=== PATIENT | female | born 1940 | race Caucasian/White ===

== ENCOUNTER 2025-07-17 09:16 | Emergency (ER) | payer BC, SELFPAY ==
[2025-07-17 09:18] VITALS: BP 156/82
--- NOTE | 2025-07-17 11:36 | ED.GENMED ---
History of Present Illness
General
Chief Complaint: Musculo-Skeletal Complaint
Time Seen by Provider: 07/17/25 10:50
History of Present Illness
History of Present Illness:
Patient is an 84-year-old female with past medical history of GERD, hyperlipidemia, hypertension who presents with days of worsening low back pain. She is unsure exactly when this started but has worsened since last to the exam table.
Denies any heavy lifting or falls recently. This is a 40 close days ago and prescribed tizanidine. She has been taking this without any improvement in her pain. Since this pain began she is been having trouble moving her bowels and started taking
MiraLAX and senna. No bowel movements in 3 days. Denies any urinary symptoms, fevers, chills, nausea, vomiting, abdominal pain.
Phy Exam
General Physical Exam
General Presentation: well appearing and no apparent distress
General Skin: warm and dry
General Habitus: normal
General Mental: alert
General Hydration: appears well hydrated
ENT Exam
ENT Exam: EOMI, pharynx normal, neck supple and normocephalic
Eye Exam
Eye Exam: PERRL, cornea clear and conjunctiva normal
Cardiovascular Exam
Cardiovascular Exam: regular rate/rhythm, no edema, no murmur and normal peripheral pulses
Pulmonary Exam
Pulmonary Exam: lungs clear, no respiratory distress, no rales, no crackles, no rhonchi, no stridor, no wheezing and no cough
Gastrointestinal Exam
Gastrointestinal Exam: normal bowel sounds, non tender, soft, no organomegaly, no pulsatile mass and non distended
Neurological Exam
Neurological Exam: alert, oriented x3, no motor deficits and speech normal
Musculoskeletal Exam
Musculoskeletal Exam: full ROM, back pain (Lumbar spine tenderness) and no edema
Skin Exam
Skin Exam: normal color, warm/dry, no rash and no petechia
Psychiatric Exam
Psychiatric Exam: normal mood/affect
Course
Orders/Labs/Results
Orders:
Orders
07/17/25 11:06
CT Abd/pel Without Iv Or Oral Urgent
Comment:
Reason For Exam: lumbar back pain, constipation
07/17/25 11:35
Urinalysis Reflex To Culture Urgent
Date Specimen was Collected: 07/17/25
Time Specimen was Collected: 11:35
Urine Microscopic Reflex Cult Urgent
Urine Culture Urgent
EDD Source: U
Specimen Description:
Date Specimen was Collected: 07/17/25
Time Specimen was Collected: 11:35
07/17/25 12:44
Acetaminophen [Tylenol] 650 mg PO NOW STA
Abnormal Lab Results
07/17/25
11:35
Leukocyte Esterase Rfl 1+ A
(Negative)
Urine Bacteria (Reflex) Few A
(Negative)
Urine Albumin (Reflex) 2+ A
(Neg - Trace)
Vital Signs
Initial and Last Documented VS:
Initial Vital Signs
Temp Pulse Resp BP Pulse Ox
36.8 C 65 20 156/82 100
07/17/25 09:18 07/17/25 09:18 07/17/25 09:18 07/17/25 09:18 07/17/25 09:18
Last Documented Vital Signs
Temp Pulse Resp BP Pulse Ox
36.8 C 56 18 163/62 100
07/17/25 11:58 07/17/25 11:58 07/17/25 11:58 07/17/25 11:58 07/17/25 11:58
MDM/Problems Addressed
Differential Diagnosis Includes:
T scan shows subtle T12 fracture likely due to osteoporosis and constipation. Discussed need for aggressive bowel regimen with patient. She has taken MiraLAX once. Encouraged her to take MiraLAX twice daily in addition to Senokot. Also
recommended that she take her multimodal pain regimen as prescribed. She reports that she has been splitting pills in half or not taking the medications. Patient follow-up with pain management and spine if pain persists. Return precautions
discussed. All questions answered. She will be discharged home from the ER.
*Pulse Oximetry
SaO2: 100
Oxygen Mode of Delivery: Room air
Patient hypoxic: no
*Critical Care Note
Total Time (30-74mins, 75-104mins- exclusive of procedures): Not Applicable
ED Attending Note
-
Portions of this chart may have been created with voice recognition software.� Occasional wrong word or��sound alike� substitutions may have occurred due to the inherent limitations of voice recognition software.
Discharge Plan
Departure
Patient Disposition: Home (Routine Discharge)
Date of Disposition: 07/17/25
Time of Disposition: 13:42
Patient with high blood pressure during this ER visit?: No
Discharge Problem:
Constipation, Fracture of thoracic spine, Osteoporosis
Instructions: Low back pain (DC)
Referrals:
Carlos Rodriguez MD [Active, Anesthesiology]
Jonathan Roldan PA [Family Provider, General]
Activity Restrictions/Additional Instructions:
CT reports showed constipation as well as a subtle fracture of your thoracic vertebrae likely caused by osteoporosis. You should begin taking MiraLAX twice daily in addition to the senna. Constipation does not improve with this regimen in a few
days then I would recommend following up with your primary care physician. Return to the ER for any severe abdominal pain, worsening back pain, or other concerning symptoms. If back pain does not begin to improve with multimodal pain regimen
please follow-up with pain management and spine.
Interventions
Interventions:
*Risk Screen - Suicide Last Done: 07/17/25 09:18
*General Assessment Last Done: 07/17/25 09:18
*Neglect/Abuse Screening Last Done: 07/17/25 14:17
*ED COVID-19 Vaccine History Last Done: 07/17/25 11:52
*ED Influenza Vaccine History Last Done: 07/17/25 11:52
[facility] Fall Risk Assessment Tool Last Done: 07/17/25 13:14
*Nursing Disposition Last Done: 07/17/25 14:14
ED-Musculoskeletal Assessment Last Done: 07/17/25 11:52
Discharge Date and Time
Discharge Date/Time: 07/17/25 14:16
Print Language: MONGOLIAN
[2025-07-17 11:58] VITALS: BP 163/62
[2025-07-17 12:01] LABS: Urine Character Clear (Clear)
[2025-07-17 12:20] LABS: Urine Red Blood Cell 0-2 /HPF (0-2); Urine White Cell 0-2 /HPF (0-5)
[2025-07-17] MEDS: TYLENOL 650 MG PO (12:56)
== END 2025-07-17 14:16 | disposition home or self-care (01) ==
LOC: EMR 09:16
PROVIDERS: Surgery Trauma Surgery; EMERGENCY PHYSICIAN Emergency Medicine; FAMILY PHYSICIAN Specialist/Technologist Athletic Trainer
DX: K59.00 Constipation, unspecified (principal); S22.089A Unspecified fracture of T11-T12 vertebra, initial encounter for closed fracture; X58.XXXA Exposure to other specified factors, initial encounter; M81.0 Age-related osteoporosis without current pathological fracture; I10 Essential (primary) hypertension; E78.5 Hyperlipidemia, unspecified; K21.9 Gastro-esophageal reflux disease without esophagitis; T42.8X6A Underdosing of antiparkinsonism drugs and other central muscle-tone depressants, initial encounter; Z91.148 Patient's other noncompliance with medication regimen for other reason
CPT/HCPCS: 99284; 74176; 81003; 81015; 87086